=== PATIENT | male | born 1960 | race Caucasian/White ===

== ENCOUNTER 2024-03-29 10:42 | Emergency (ER) | payer OTHER ==
--- NOTE | 2024-03-29 12:18 | RAD REPORT ---
EXAM DESCRIPTION: US - Extrem Venous W Compress Ralph - 03/29/2024 11:56 am CLINICAL HISTORY: Pain COMPARISON: None. TECHNIQUE: Real-time sonographic evaluation of the bilateral lower extremity deep venous systems was performed. FINDINGS: Normal compressibility, flow augmentation, phasic flow and spontaneous flow is identified in both the left and right lower extremity deep venous systems. No intraluminal filling defects seen. IMPRESSION: No DVT in either lower extremity.
[2024-03-29] MEDS ORDERED: HYDROCODONE/APAP 10/325 TAB ONE (12:35)
[2024-03-29] MEDS ORDERED: KETOROLAC 30 MG/ML INJ ONE (12:35)
--- NOTE | 2024-03-29 12:35 | EDPHYS ---
Physician Documentation [facility] Name: Robert Bhakta Age: 63 yrs Sex: Male : 1960 Arrival Date: 03/29/2024 Time: 10:42 Bed 12 Private MD: ED Physician Rell Mora HPI: 03/29 11:31 This 63 yrs old Male presents to ER via Wheelchair with complaints of Knee lucia Pain. 11:31 The patient presents with decreased range of motion, pain, swelling, tenderness. The lucia complaints affect the left knee. Context: The problem was sustained at an unknown site, [place], ON [place] BID. Historical: - Allergies: 11:07 Lisinopril; nj1 11:07 Procardia; nj1 13:44 cefepime; cm10 13:44 Doxycycline; cm10 13:44 Nifedipine; cm10 13:44 DAISHA INHIBITORS; cm10 13:44 Contrast; cm10 13:44 ambien; cm10 13:44 Hydroxychloroquine; cm10 - Home Meds: 13:44 pantoprazole 40 mg oral tablet, delayed release (enteric coated) 1 tab 2 times per day cm10 [Active]; Eliquis 2.5 mg oral tablet 2 times per day [Active]; spironolactone 25 mg Oral tablet daily [Active]; amlodipine 5 mg tablet daily [Active]; rosuvastatin 10 mg oral tablet daily [Active]; folic acid 1 mg Oral tablet daily [Active]; gabapentin 300 mg oral capsule daily [Active]; trazodone 100 mg Oral tablet daily [Active]; - PMHx: 11:07 Hypertensive disorder; Gastric reflux; Deep vein thrombosis; nj1 - Immunization history:: Client reports receiving the 2nd dose of the Covid vaccine. - Infectious Disease History:: Denies. - Social history:: Smoking status: Patient reports the use of cigarette tobacco products, smokes one pack cigarettes per day. - Family history:: not pertinent. ROS: 11:31 Constitutional: Negative for fever, chills, and weight loss, Eyes: Negative for injury, lucia pain, redness, and discharge, ENT: Negative for injury, pain, and discharge, Neck: Negative for injury, pain, and swelling, Cardiovascular: Negative for chest pain, palpitations, and edema, Respiratory: Negative for shortness of breath, cough, wheezing, and pleuritic chest pain, Abdomen/GI: Negative for abdominal pain, nausea, vomiting, diarrhea, and constipation, Back: Negative for injury and pain, : Negative for injury, bleeding, discharge, and swelling, Skin: Negative for injury, rash, and discoloration, Neuro: Negative for headache, weakness, numbness, tingling, and seizure, Psych: Negative for depression, anxiety, suicide ideation, homicidal ideation, and hallucinations, Allergy/Immunology: Negative for hives, rash, and allergies, Endocrine: Negative for neck swelling, polydipsia, polyuria, polyphagia, and marked weight changes, Hematologic/Lymphatic: Negative for swollen nodes, abnormal bleeding, and unusual bruising, 11:31 MS/extremity: Positive for pain, swelling, tenderness, of the lateral aspect of left knee, medial aspect of left knee and left knee, Exam: 11:31 Constitutional: This is a well developed, well nourished patient who is awake, alert, lucia and in no acute distress. Head/Face: Normocephalic, atraumatic. Eyes: Pupils equal round and reactive to light, extra-ocular motions intact. Lids and lashes normal. Conjunctiva and sclera are non-icteric and not injected. Cornea within normal limits. Periorbital areas with no swelling, redness, or edema. ENT: Nares patent. No nasal discharge, no septal abnormalities noted. Tympanic membranes are normal and external auditory canals are clear. Oropharynx with no redness, swelling, or masses, exudates, or evidence of obstruction, uvula midline. Mucous membranes moist. Neck: Trachea midline, no thyromegaly or masses palpated, and no cervical lymphadenopathy. Supple, full range of motion without nuchal rigidity, or vertebral point tenderness. No Meningismus. Chest/axilla: Normal chest wall appearance and motion. Nontender with no deformity. No lesions are appreciated. Cardiovascular: Regular rate and rhythm with a normal S1 and S2. No gallops, murmurs, or rubs. Normal PMI, no JVD. No pulse deficits. Respiratory: Lungs have equal breath sounds bilaterally, clear to auscultation and percussion. No rales, rhonchi or wheezes noted. No increased work of breathing, no retractions or nasal flaring. Abdomen/GI: Soft, non-tender, with normal bowel sounds. No distension or tympany. No guarding or rebound. No evidence of tenderness throughout. Back: No spinal tenderness. No costovertebral tenderness. Full range of motion. Male : Normal genitalia with no discharge or lesions. Skin: Warm, dry with normal turgor. Normal color with no rashes, no lesions, and no evidence of cellulitis. Neuro: Awake and alert, GCS 15, oriented to person, place, time, and situation. Cranial nerves II-XII grossly intact. Motor strength 5/5 in all extremities. Sensory grossly intact. Cerebellar exam normal. Normal gait. Psych: Awake, alert, with orientation to person, place and time. Behavior, mood, and affect are within normal limits. 11:31 Musculoskeletal/extremity: ROM: full active range of motion, full passive range of motion, limited active range of motion due to pain, limited passive range of motion due to pain, Circulation is intact in all extremities. Sensation intact. Compartment Syndrome exam of affected extremity: is normal. Weight bearing: able to fully bear weight, without difficulty, DVT Exam: negative Homans' sign noted on exam, no appreciated bluish discoloration, no erythema, no increased warmth, pain, swelling, tenderness, 13:37 Musculoskeletal/extremity: Extremities: grossly normal except: erythema, on re exam lucia right medial aspect warm, tender, dvt study neg, no visible cellulitis, Vital Signs: 11:04 BP 142 / 78; Pulse 85; Resp 18; Temp 98.8(O); Pulse Ox 95% ; Weight 117.93 kg; Height 5 nj1 ft. 10 in. ; Pain 4/10; 13:22 BP 135 / 68; Pulse 71; Resp 18; Pulse Ox 97% ; Pain 3/10; cm10 14:34 BP 114 / 64; Pulse 74; Resp 16; Pulse Ox 93% on R/A; cm10 15:00 BP 110 / 74; Pulse 74; Resp 16; Pulse Ox 94% ; cm10 15:30 BP 111 / 77; Pulse 84; Resp 18; Pulse Ox 93% ; cm10 16:00 BP 120 / 71; Pulse 83; Resp 16; Pulse Ox 93% ; cm10 17:00 BP 135 / 74; Pulse 85; Resp 16; Pulse Ox 93% ; cm10 11:04 Body Mass Index 37.31 (117.93 kg, 177.8 cm) nj1 11:04 Pain Scale: Adult nj1 13:22 Pain Scale: Adult cm10 MDM: 10:46 Patient medically screened. [facility] 11:34 Differential diagnosis: contusion, tendonitis. Data reviewed: vital signs, nurses [facility] notes, radiologic studies. Consideration of Admission/Observation Escalation of care including admission/observation considered. I considered the following discharge prescriptions or medication management in the emergency department Medications were administered in the Emergency Department. See MAR. Independent interpretation of the following test(s) in the Emergency Department X-Ray: My interpretation is LEFT KNEE. Test considered but Not performed: Labs: NO CBC , NO COMP MET. Care significantly affected by the following chronic conditions: Hypertension, Obesity, DVTS. Counseling: I had a detailed discussion with the patient and/or guardian regarding the historical points, exam findings, and any diagnostic results supporting the discharge/admit diagnosis, lab results, radiology results, the need for outpatient follow up, for definitive care, a family practitioner. 03/29 13:37 Order name: CBC with Diff; Complete Time: 14:23 [facility] 03/29 13:37 Order name: Comprehensive Metabolic Panel; Complete Time: 14:33 [facility] 03/29 13:37 Order name: Blood Culture Adult (2) [facility] 03/29 13:40 Order name: CRP; Complete Time: 14:31 [facility] 03/29 11:27 Order name: US Extremity Venous W Compression Ralph; Complete Time: 12:34 [facility] 03/29 11:27 Order name: Knee Left 3 View XRAY; Complete Time: 14:23 [facility] 03/29 11:27 Order name: Ice pack; Complete Time: 12:41 [facility] 03/29 16:59 Order name: PO challenge: juiice; Complete Time: 17:00 [facility] Administered Medications: 12:41 Drug: Ketorolac IM 30 mg IM once Route: IM; Site: right vastus lateralis; cm10 13:22 Follow up: Response: No adverse reaction; Pain is decreased cm10 12:41 Drug: Capron PO 10 mg-325 mg 1 tabs PO once Route: PO; cm10 13:22 Follow up: Response: No adverse reaction; Pain is decreased cm10 12:41 Drug: Ondansetron Oral Disintegrating Tablet Oral Disintegrating Tablet 4 mg PO once cm10 Route: PO; 13:22 Follow up: Response: No adverse reaction cm10 14:27 Drug: NS 0.9% IV 500 ml IV at bolus once Route: IV; Rate: bolus; Site: right forearm; cm10 15:37 Follow up: Response: No adverse reaction; IV Status: Completed infusion; IV Intake: cm10 500ml 14:27 Drug: Piperacillin-Tazobactam IVPB 3.375 grams IVPB once over 60 mins; (mix in NS 100 cm10 mL) Route: IVPB; Infused Over: 60 mins; Site: right forearm; 15:36 Follow up: Response: No adverse reaction; IV Status: Completed infusion; IV Intake: cm10 100ml 14:33 Drug: Trimethoprim-Sulfamethoxazole PO (160 mg-800 mg (DS) 1 tablet PO once Route: PO; cm10 15:37 Follow up: Response: No adverse reaction cm10 14:34 Drug: Amoxicillin-Clavulanate PO 875 mg PO once Route: PO; cm10 15:37 Follow up: Response: No adverse reaction cm10 17:07 Drug: Potassium PO Effervescent Tablet 25 mEq PO once; dissolve in 4 ounces of water or cm10 juice Route: PO; 17:34 Follow up: Response: No adverse reaction cm10 Disposition Summary: 03/29/24 14:37 Transfer Ordered Notes: Transfer Location: [facility] lucia Reason: Higher level of care lucia Condition: Fair(03/29/24 14:37) lucia Problem: new(03/29/24 14:37) lucia Symptoms: have improved(03/29/24 14:37) lucia Accepting Physician: to [facility] [place]03/29/24 17:35) cm10 Diagnosis - Pain in left knee(03/29/24 14:37) lucia - Cellulitis of left lower limb - left knee lucia - Effusion, left knee - moderate, hx of replacement, CRP 109 lucia - Hypokalemia lucia Forms: - Medication Reconciliation Form lucia - SBAR form lucia Signatures: Dispatcher [employer] EDRell Carias MD MD cha Jaco, Norma RN RN nj1 Susan Jefferson RN RN cm10 Corrections: (The following items were deleted from the chart) 13:35 12:35 Home lucia lcuia 13:35 12:35 new lucia lucia 13:35 12:35 have improved lucia lucia 13:35 12:35 Stable lucia lucia 13:35 12:35 Pain in left knee lucia lucia 13:35 12:35 intermediate designer (current) use of anticoagulants lucia lucia 13:37 13:37 CBC+H.LAB.BRZ ordered. EDMS EDMS 13:37 13:37 COMPREHENSIVE METABOLIC PANEL+C.LAB.BRZ ordered. EDMS EDMS 13:37 13:37 BLOOD CULTURE*+BA.LAB.BRZ ordered. EDMS EDMS 13:48 11:07 Allergies: an unknown antibiotic; nj1 cm10 15:51 14:37 to [facility], c lucia lucia 17:35 15:51 to [facility], c lucia cm10
--- NOTE | 2024-03-29 12:35 | ER ---
Nurse's Notes [facility] Name: Robert Bhakta Age: 63 yrs Sex: Male : 1960 Arrival Date: 03/29/2024 Time: 10:42 Bed 12 Private MD: Diagnosis: Pain in left knee;Cellulitis of left lower limb-left knee;Effusion, left knee-moderate, hx of replacement, CRP 109;Hypokalemia Presentation: 03/29 11:04 Chief complaint: Patient states: Left knee since Tuesday, getting worse, no injury. Has nj1 had blood clots in the past. Had trip from [place] during the weekend. Coronavirus screen: Vaccine status: Patient reports receiving the 2nd dose of the covid vaccine. Ebola Screen: Patient denies travel to an Ebola-affected area in the 21 days before illness onset. Initial Sepsis Screen: Does the patient meet any 2 criteria? No. Patient's initial sepsis screen is negative. Does the patient have a suspected source of infection? No. Patient's initial sepsis screen is negative. Risk Assessment: Do you want to hurt yourself or someone else? Patient reports no desire to harm self or others. Onset of symptoms was March 26, 2024. 11:04 Method Of Arrival: Wheelchair nj1 11:04 Acuity: JAILENE 3 nj1 Triage Assessment: 11:10 General: Appears in no apparent distress. comfortable. General: Behavior is calm, nj1 cooperative, appropriate for age. Pain: Complains of pain in left knee. Neuro: Level of Consciousness is awake, alert, obeys commands, Oriented to person, place, time, situation. Cardiovascular: Cardiovascular: Patient's skin is warm and dry. Respiratory: Airway is patent Respiratory effort is even, unlabored. Historical: - Allergies: 11:07 Lisinopril; nj1 11:07 Procardia; nj1 13:44 cefepime; cm10 13:44 Doxycycline; cm10 13:44 Nifedipine; cm10 13:44 DAISHA INHIBITORS; cm10 13:44 Contrast; cm10 13:44 ambien; cm10 13:44 Hydroxychloroquine; cm10 - Home Meds: 13:44 pantoprazole 40 mg oral tablet, delayed release (enteric coated) 1 tab 2 times per day cm10 [Active]; Eliquis 2.5 mg oral tablet 2 times per day [Active]; spironolactone 25 mg Oral tablet daily [Active]; amlodipine 5 mg tablet daily [Active]; rosuvastatin 10 mg oral tablet daily [Active]; folic acid 1 mg Oral tablet daily [Active]; gabapentin 300 mg oral capsule daily [Active]; trazodone 100 mg Oral tablet daily [Active]; - PMHx: 11:07 Hypertensive disorder; Gastric reflux; Deep vein thrombosis; nj1 - Immunization history:: Client reports receiving the 2nd dose of the Covid vaccine. - Infectious Disease History:: Denies. - Social history:: Smoking status: Patient reports the use of cigarette tobacco products, smokes one pack cigarettes per day. - Family history:: not pertinent. Screenin:40 [facility] ED Fall Risk Assessment (Adult) History of falling in the last 3 months, cm10 including since admission No falls in past 3 months (0 pts) Confusion or Disorientation No (0 pts) Intoxicated or Sedated No (0 pts) Impaired Gait Yes (1 pt) Mobility Assist Device Used Yes (1 pt) Altered Elimination No (0 pt) Score/Fall Risk Level 0 - 2 = Low Risk Oriented to surroundings, Maintained a safe environment, Hourly rounding (assess needs \T\ fall precautionary measures) done. Abuse screen: Denies threats or abuse. Denies injuries from another. Nutritional screening: No deficits noted. Tuberculosis screening: No symptoms or risk factors identified. Assessment: 11:40 General: Appears in no apparent distress. uncomfortable, Behavior is calm, cooperative. cm10 Pain: Complains of pain in medial aspect of left knee and lateral aspect of left knee and left leg and left knee. Neuro: No deficits noted. Level of Consciousness is awake, alert, obeys commands, Oriented to person, place, time, situation. Cardiovascular: No deficits noted. Patient's skin is warm and dry. Respiratory: No deficits noted. Airway is patent Respiratory effort is even, unlabored, Respiratory pattern is regular, symmetrical. 11:40 General: Pt provided with food at this time. Derm: Skin is intact, redness noted to cm10 left knee area. 12:41 General: Pt pending d/c due to being on shot time.. cm10 13:23 Reassessment: Patient appears in no apparent distress at this time. Patient is alert, cm10 oriented x 3, equal unlabored respirations, skin warm/dry/pink. Patient states feeling better. Patient states symptoms have improved. Vital Signs: 11:04 BP 142 / 78; Pulse 85; Resp 18; Temp 98.8(O); Pulse Ox 95% ; Weight 117.93 kg; Height 5 nj1 ft. 10 in. ; Pain 4/10; 13:22 BP 135 / 68; Pulse 71; Resp 18; Pulse Ox 97% ; Pain 3/10; cm10 14:34 BP 114 / 64; Pulse 74; Resp 16; Pulse Ox 93% on R/A; cm10 15:00 BP 110 / 74; Pulse 74; Resp 16; Pulse Ox 94% ; cm10 15:30 BP 111 / 77; Pulse 84; Resp 18; Pulse Ox 93% ; cm10 16:00 BP 120 / 71; Pulse 83; Resp 16; Pulse Ox 93% ; cm10 17:00 BP 135 / 74; Pulse 85; Resp 16; Pulse Ox 93% ; cm10 11:04 Body Mass Index 37.31 (117.93 kg, 177.8 cm) nj1 11:04 Pain Scale: Adult nj1 13:22 Pain Scale: Adult cm10 ED Course: 10:44 Patient arrived in ED. rg4 10:46 Rell Mora MD is Attending Physician. lucia 11:07 Triage completed. nj1 11:10 Arm band placed on right wrist. nj1 11:40 Susan Jefferson, RN is Primary Nurse. cm10 11:40 Patient taken to ultrasound. via wheelchair. cm10 11:41 Patient has correct armband on for positive identification. Placed in gown. Bed in low cm10 position. Call light in reach. 11:58 US Extremity Venous W Compression Ralph In Process Unspecified. EDMS 12:29 Knee Left 3 View XRAY In Process Unspecified. EDMS 13:23 Provided Education on: Follow-up instructions. cm10 13:23 No provider procedures requiring assistance completed. cm10 13:34 Primary Nurse role handed off by Susan Jefferson, RN aa5 13:35 Susan Jefferson, RN is Primary Nurse. cm10 13:55 Initial lab(s) drawn, by me, sent to lab. First set of blood cultures drawn by me. cm10 13:57 CRP Sent. cm10 13:57 Comprehensive Metabolic Panel Sent. cm10 13:57 CBC with Diff Sent. cm10 13:58 Inserted saline lock: 20 gauge in right forearm, using aseptic technique. Blood cm10 collected. 14:20 Second set of blood cultures drawn by me. cm10 16:56 Report given to ELENI Clemens at [facility]. cm10 16:56 Patient transferred, IV remains in place. cm10 Administered Medications: 12:41 Drug: Ketorolac IM 30 mg IM once Route: IM; Site: right vastus lateralis; cm10 13:22 Follow up: Response: No adverse reaction; Pain is decreased cm10 12:41 Drug: [place] PO 10 mg-325 mg 1 tabs PO once Route: PO; cm10 13:22 Follow up: Response: No adverse reaction; Pain is decreased cm10 12:41 Drug: Ondansetron Oral Disintegrating Tablet Oral Disintegrating Tablet 4 mg PO once cm10 Route: PO; 13:22 Follow up: Response: No adverse reaction cm10 14:27 Drug: NS 0.9% IV 500 ml IV at bolus once Route: IV; Rate: bolus; Site: right forearm; cm10 15:37 Follow up: Response: No adverse reaction; IV Status: Completed infusion; IV Intake: cm10 500ml 14:27 Drug: Piperacillin-Tazobactam IVPB 3.375 grams IVPB once over 60 mins; (mix in NS 100 cm10 mL) Route: IVPB; Infused Over: 60 mins; Site: right forearm; 15:36 Follow up: Response: No adverse reaction; IV Status: Completed infusion; IV Intake: cm10 100ml 14:33 Drug: Trimethoprim-Sulfamethoxazole PO (160 mg-800 mg (DS) 1 tablet PO once Route: PO; cm10 15:37 Follow up: Response: No adverse reaction cm10 14:34 Drug: Amoxicillin-Clavulanate PO 875 mg PO once Route: PO; cm10 15:37 Follow up: Response: No adverse reaction cm10 17:07 Drug: Potassium PO Effervescent Tablet 25 mEq PO once; dissolve in 4 ounces of water or cm10 juice Route: PO; 17:34 Follow up: Response: No adverse reaction cm10 Medication: 11:40 VIS not applicable for this client. cm10 Intake: 15:36 IV: 100ml; Total: 100ml. cm10 15:37 IV: 500ml; Total: 600ml. cm10 Outcome: 12:35 Discharge ordered by . lucia 14:37 ER care complete, transfer ordered by . lucia 17:34 Transferred by ground EMS [facility]. Report given to Wallace Valderrama who assumes cm10 care of patient. Pt stable for transport at this time.. to [facility] [place], Transfer form completed. 17:34 Condition: good 17:34 Instructed on the need for transfer, 17:35 Patient left the ED. cm10 Signatures: Dispatcher [employer] EDRell Carias MD MD cha Calderon, Audri, RN RN dion5 Carine Merritt4 Svetlana Callahan RN RN nj1 Susan Jefferson RN RN cm10 Corrections: (The following items were deleted from the chart) 13:48 11:07 Allergies: an unknown antibiotic; nj1 cm10 13:58 13:23 Patient did not have IV access during this emergency room visit. cm10 cm10 13:59 13:23 Discharged to home via wheelchair, with significant other, cm10 cm10 13:59 13:23 Condition: good cm10 cm10 13:59 13:23 Discharge instructions given to patient, Instructed on discharge instructions, cm10 follow up and referral plans. medication usage, Demonstrated understanding of instructions, follow-up care, medications, Prescriptions given X 1, cm10 13:59 13:24 Patient left the ED. cm10 cm10 15:12 11:40 Respiratory: No deficits noted. Airway is patent Respiratory effort is even, cm10 unlabored, Respiratory pattern is regular, symmetrical, cm10 15:37 15:36 IV Status: Completed infusion; IV Intake: 100ml cm10 cm10 17:35 17:34 Transferred by ground EMS [facility]. Report given to Wallace Valderrama who cm10 assumes care of patient. Pt stable for transport at this time.. cm10
[2024-03-29] MEDS ORDERED: ONDANSETRON 4 MG (ODT) TAB ONE (12:36)
--- NOTE | 2024-03-29 12:37 | RAD REPORT ---
EXAM DESCRIPTION: RAD - Knee Left 3 View - 03/29/2024 12:28 pm CLINICAL HISTORY: PAIN COMPARISON: No comparisons FINDINGS: Left total knee arthroplasty seen. No evidence of hardware loosening or infection. Moderat e joint effusion is likely present. No fracture seen.
[2024-03-29 13:38] VITALS: TEMP 98.8
[2024-03-29] MEDS ORDERED: PIPERACIL/TAZO 3.375 GM VIAL IV ONE (14:04)
[2024-03-29] MEDS ORDERED: NA CHLORIDE 0.9% 100 ML ONE (14:04)
[2024-03-29] MEDS ORDERED: NA CHLORIDE 0.9% 500 ML ONE (14:04)
[2024-03-29 14:05] LABS: Absolute Basophils 0.1 K/uL (0-0.5); Absolute Eosinophils 0.1 K/uL (0-0.5); Absolute Lymphocytes (CBC) 1.4 K/uL (0.7-4.9); Absolute Monocytes 0.9 K/uL (0.1-1.3); Basophils % 0.7 % (0-1.3); Eosinophils % 1.4 % (0-4.4); Hematocrit 37.8 % (39.6-49.0); Hemoglobin 13.4 g/dL (13.6-17.9); Lymphocytes % 15.2 % (15.3-44.8); MCH 34.5 pg (27.0-35.0); MCHC 35.6 g/dL (32.0-36.0); MCV 96.9 fL (80-100); MPV 8.2 fL (7.6-11.3); Monocytes % 9.2 % (3.3-12.3); Neutrophils % 73.5 % (41.7-73.7); Nucleated Red Blood Cells % 0.1 % (0-0); Platelets 278 thou/uL (152-406); Red Cell Distribution Width 12.9 % (12.1-15.2)
[2024-03-29] MEDS ORDERED: SMZ./TMP. 800/160 MG TABLET ONE (14:29)
[2024-03-29] MEDS ORDERED: AMOX/K CLAV 875 MG TAB ONE (14:29)
[2024-03-29 14:31] LABS: Albumin 3.2 g/dL (3.4-5.0); Albumin/Globulin Ratio 0.9 (1.1-1.8); Anion Gap 8.3 mEq/L (5.0-15.0); Bilirubin Total 0.7 mg/dL (0.2-1.0); Globulin 3.7 g/dL (2.3-3.5); Potassium 3.3 mEq/L (3.5-5.1); Protein, Total 6.9 g/dL (6.4-8.2)
[2024-03-29] MEDS ORDERED: POTASSIUM 25 MEQ EFFERV TAB ONE ×2 (17:01→17:05)
[2024-03-29 17:53] VITALS: BP 135/74; O2SAT 93
== END 2024-03-29 17:35 | disposition short-term general hospital (02) ==
LOC: ER 10:42
DX: L03.116 Cellulitis of left lower limb (principal); M25.462 Effusion, left knee; M25.562 Pain in left knee; E87.6 Hypokalemia; I10 Essential (primary) hypertension; K21.9 Gastro-esophageal reflux disease without esophagitis; Z96.652 Presence of left artificial knee joint; F17.210 Nicotine dependence, cigarettes, uncomplicated; Z86.718 Personal history of other venous thrombosis and embolism; Z79.01 Long term (current) use of anticoagulants; Z79.899 Other long term (current) drug therapy; Z88.8 Allergy status to other drugs, medicaments and biological substances
CPT/HCPCS: 96365; 87040 ×2; 85025; 36415; 80053; 86140; 73562; 93970; 96372; 99285; Q0162; J2543; J7040